=== PATIENT | female | born 2000 | race Caucasian/White ===

== ENCOUNTER 2021-12-18 20:25 | Emergency (ER) | payer OTHER ==
[~2021-12-18] VITALS: Ht 165.1 cm; Wt 79.0 kg
== END 2021-12-18 22:20 ==
LOC: ER 20:25
DX: F41.0 Panic disorder [episodic paroxysmal anxiety] (principal); F17.290 Nicotine dependence, other tobacco product, uncomplicated
CPT/HCPCS: 99283